=== PATIENT | male | born 1975 | race Caucasian/White ===

== ENCOUNTER 2019-02-21 16:23 | Emergency (ER) | payer BC ==
[2019-02-21] MEDS ORDERED: DIPH/PERTUSS(ACELL)/TETANUS VAC/PF 0.5 ML SYR (>=10YO) IM ONE (17:21)
[2019-02-21] MEDS ORDERED: LIDOCAINE 1% INJ-PF (10 MG/ML) 30 ML SDV INJ ONE (17:21)
--- NOTE | 2019-02-21 17:23 | ER Document Report ---
ED Medical Screen (RME) - General Chief Complaint: Laceration Stated Complaint: LEFT HAND LACERATION Time Seen by Provider: 02/21/19 17:17 Mode of Arrival: Ambulatory Notes: Patient presents with laceration to the dorsal aspect of the left second finger. Patient with no active bleeding. Patient unable to fully extend the left second DIP joint worrisome for possible tendon laceration. I have greeted and performed a rapid initial assessment of this patient. A comprehensive ED assessment and evaluation of the patient, analysis of test results and completion of the medical decision making process will be conducted by additional ED providers. - Related Data Allergies/Adverse Reactions: No Known Allergies Allergy (Verified 02/21/19 17:04) Physical Exam - Vital signs Vitals: Temp Pulse Resp BP Pulse Ox 98.0 F 87 16 150/94 H 97 02/21/19 16:27 02/21/19 16:27 02/21/19 16:27 02/21/19 16:27 02/21/19 16:27 - General Notes: 5 cm laceration to the left second finger Course - Vital Signs Vital signs: Temp Pulse Resp BP Pulse Ox 98.0 F 87 16 150/94 H 97 02/21/19 16:27 02/21/19 16:27 02/21/19 16:27 02/21/19 16:27 02/21/19 16:27
[2019-02-21] MEDS ORDERED: IBUPROFEN 800 MG TABLET PO ONE (17:35)
[2019-02-21] MEDS ORDERED: TRANEXAMIC ACID INJ/PF 1,000 MG/10 ML SDV TOP ONE (19:44)
--- NOTE | 2019-02-21 20:02 | ER Document Report ---
ED General - General Chief Complaint: Laceration Stated Complaint: LEFT HAND LACERATION Time Seen by Provider: 02/21/19 17:17 Primary Care Provider: ADILSON ARROYO PA [Primary Care Provider] - Follow up as needed Mode of Arrival: Ambulatory Notes: RME NOTE: Patient presents with laceration to the dorsal aspect of the left second finger. Patient with no active bleeding. Patient unable to fully extend the left second DIP joint worrisome for possible tendon laceration. My HPI: Patient voices he accidentally cut his left index finger with a snuff box finisher prior to arrival to the emergency room. Patient states in triage he was unable to move his entire finger but he states that was secondary due to pain. Patient was treated with Motrin and upon my assessment has full range of motion MCP, PIP, DIP. Patient is a diabetic, takes no blood thinners. Patient's tetanus was updated by E provider. - Related Data Allergies/Adverse Reactions: No Known Allergies Allergy (Verified 02/21/19 17:04) Past Medical History - General Information source: Patient - Social History Smoking Status: Never Smoker Family History: Reviewed & Not Pertinent Patient has suicidal ideation: No Patient has homicidal ideation: No Review of Systems - Review of Systems Constitutional: denies: Fever EENT: No symptoms reported Cardiovascular: No symptoms reported Respiratory: No symptoms reported Gastrointestinal: No symptoms reported Genitourinary: No symptoms reported Male Genitourinary: No symptoms reported Musculoskeletal: See HPI Skin: See HPI Hematologic/Lymphatic: No symptoms reported Neurological/Psychological: No symptoms reported Physical Exam - Vital signs Vitals: Temp Pulse Resp BP Pulse Ox 98.0 F 87 16 150/94 H 97 02/21/19 16:27 02/21/19 16:27 02/21/19 16:27 02/21/19 16:27 02/21/19 16:27 - Notes Notes: GENERAL: Alert, interacts well. No acute distress. HEAD: Normocephalic, atraumatic. EYES: Pupils equal, round, and reactive to light. Extraocular movements intact. ENT: Oral mucosa moist, tongue midline. NECK: Full range of motion. Supple. Trachea midline. LUNGS: Clear to auscultation bilaterally, no wheezes, rales, or rhonchi. No respiratory distress. HEART: Regular rate and rhythm. No murmur ABDOMEN: Soft, non-tender. Non-distended. Bowel sounds present in all 4 quadrants. EXTREMITIES: Moves all 4 extremities spontaneously. No edema, normal radial and dorsalis pedis pulses bilaterally. No cyanosis. Full range of motion all 5 fingers on the left hand. Left index finger has full range of motion MCP, PIP, DIP. Capillary refill less than 2 seconds left distal index finger. BACK: no cervical, thoracic, lumbar midline tenderness. No saddle anesthesia, normal distal neurovascular exam. NEUROLOGICAL: Alert and oriented x3. Normal speech. cranial nerves II through XII grossly intact. PSYCH: Normal affect, normal mood. SKIN: Warm, dry, normal turgor. Laceration noted dorsal aspect of left index finger. Course - Re-evaluation Re-evalutation: 02/21/19 19:59 Laceration repaired, see procedure note, patient tolerated well. Upon my assessment patient verbalizes that he is surprised that he can bend his entire finger. States initially thought it was going to hurt too much. Patient does have full range of motion all joints and left index finger. Patient will be placed on antibiotics for prophylactics as patient is diabetic and it is his hand. At this time will discharge with return precautions and follow-up recommendat ions. Verbal discharge instructions given a the bedside and opportunity for questions given. Medication warnings reviewed. Patient is in agreement with this plan and has verbalized understanding of return precautions and the need for primary care follow-up in the next 24-72 hours. This medical record was dictated with voice recognizing software. There may be grammatical, syntax errors that are unintended. - Vital Signs Vital signs: Temp Pulse Resp BP Pulse Ox 98.0 F 87 16 150/94 H 97 02/21/19 16:27 02/21/19 16:27 02/21/19 16:27 02/21/19 16:27 02/21/19 16:27 Procedures - Laceration/Wound Repair Left index finger Wound length (cm): 8 Wound's Depth, Shape: Superficial, Linear Laceration pre-procedure: Sterile PPE donned, Betadine prep applied, Sterile drapes applied, Shur-Clens applied Anesthetic type: 1% Lidocaine Volume Anesthetic (mLs): 5 Wound explored: Clean Irrigated w/ Saline (mLs): 500 Wound Debrided: Minimal Wound Repaired With: Sutures Suture Size/Type: 4:0, Ethilon Number of Sutures: 7 Post-procedure wound care: Sterile dressing applied, Splint applied Post-procedure NV exam normal: Yes Complications: No Discharge - Discharge Clinical Impression: Finger laceration Qualifiers: Encounter type: initial encounter Finger: index finger Damage to nail status: without damage Foreign body presence: without foreign body Laterality: left Qualified Code(s): S61.211A - Laceration without foreign body of left index finger without damage to nail, initial encounter Condition: Stable Disposition: HOME, SELF-CARE Instructions: Laceration Care ([facility]), Prophylactic Antibiotic ([facility]), Tetanus Immunization Given ([facility]), Soap Cleansing ([facility]), Antibiotic Ointment Protection ([facility]) Additional Instructions: As we discussed you have been seen and treated in the emergency department for a laceration to your left finger. Please keep the wound clean and dry for the next 24 hours. After that you can wash with regular soap and water. Please do not submerge the wound. Please take antibiotics as prescribed. Follow-up with your primary care provider in the next 24 to 48 hours. Return to the emergency room for any concerns. Prescriptions: Cephalexin Monohydrate [Keflex 500 mg Capsule] 500 mg PO TID 7 Days capsule Forms: Return to Work Referrals: ADILSON ARROYO PA [Primary Care Provider] - Follow up as needed
[2019-02-21 20:15] VITALS: BP 133/96
== END 2019-02-21 20:16 | disposition home or self-care (01) ==
LOC: ER 16:23
DX: S61.211A Laceration without foreign body of left index finger without damage to nail, initial encounter (principal); W26.8XXA Contact with other sharp object(s), not elsewhere classified, initial encounter; E11.9 Type 2 diabetes mellitus without complications; Z23 Encounter for immunization
CPT/HCPCS: 99282; 90471; 90715; 12004; J3490 ×2